=== PATIENT | female | born 1935 | race Caucasian/White ===

== ENCOUNTER 2019-04-05 23:51 | Inpatient (IN) | payer OTHER ==
[~2019-04-05] VITALS: Ht 162.6 cm; Wt 71.0 kg
[2019-04-06] MEDS ORDERED: ONDANSETRON 4 MG INJ IV STA (00:10)
[2019-04-06] MEDS ORDERED: SOD CHLORIDE 0.9% 1,000 ML IV STA (00:10)
[2019-04-06] MEDS ORDERED: HYDROmorphONE 1 MG/ML SYG IV STA (00:10)
[2019-04-06] MEDS ORDERED: SOD CHLORIDE 0.9% 100 ML ONE (01:44)
[2019-04-06] MEDS ORDERED: IOHEXOL 300MG/ML 150 ML BTL ONE (01:44)
--- NOTE | 2019-04-06 04:45 | ERD ---
ER Documentation Chief Complaint Chief Complaint bib self, cc: constipation x 4 days, HPI This 83-year-old female complains of left lower quadrant pain for the past 4 days. She also has some constipation. She has no fever no nausea or vomiting. It is in the left lower quadrant is dull and crampy at times without radiation no hematuria ROS All systems reviewed and are negative except as per history of present illness. Allergies Allergies: Coded Allergies: No Known Allergy (Unverified , 04/06/19) PMhx/Soc Medical and Surgical Hx: pt denies Medical Hx, pt denies Surgical Hx Hx Alcohol Use: No Hx Substance Use: No Hx Tobacco Use: No Smoking Status: Never smoker FmHx Family History: No coronary disease Physical Exam Vitals Vital Signs Date Temp Pulse Resp B/P (MAP) Pulse Ox O2 O2 Flow FiO2 Time Delivery Rate 04/06/19 82 20 155/60 100 Room Air 04:41 (91) 04/06/19 68 19 148/78 96 Room Air 02:00 (101) 04/06/19 98.5 79 19 152/81 100 Room Air 00:05 (104) 04/05/19 98.5 81 19 126/65 100 23:59 (85) Physical Exam Const: Well-developed, well-nourished Head: Atraumatic, normocephalic Eyes: Normal Conjunctiva, PERRLA, EOMI, normal sclera, no nystagmus ENT: Normal External Ears, Nose and Mouth, moist mucus membranes. Neck: Full range of motion. No meningismus, no lymphadenopathy. Resp: Clear to auscultation bilaterally, no wheezing, rhonchi, rales Cardio: Regular rate and rhythm, no murmurs, S1 S2 present Abd: Soft, moderate left lower quadrant tenderness, non distended. Normal bowel sounds, no guarding or rebound, no pulsitile abdominal masses or bruits Skin: No petechiae or rashes, no ecchymosis , no maculopapular rash Back: No midline or flank tenderness Ext: No cyanosis, or edema, FROM x 4, normal inspection, neurovascularly intact x 4 Neur: Awake and alert, STR 5/5 x 4, sensation intact x 4, no focal findings, cerebellum intact Psych: Normal Mood and Affect Result Diagram: 04/06/197 04/06/197 Results 24 hrs Laboratory Tests Test 04/06/19 00:37 White Blood Count 9.6 10^3/ul Red Blood Count 4.25 10^6/ul Hemoglobin 12.0 g/dl Hematocrit 36.7 % Mean Corpuscular Volume 86.4 fl Mean Corpuscular Hemoglobin 28.2 pg Mean Corpuscular Hemoglobin Concent 32.7 g/dl Red Cell Distribution Width 13.2 % Platelet Count 184 10^3/UL Mean Platelet Volume 9.5 fl Immature Granulocytes % 0.300 % Neutrophils % 79.3 % Lymphocytes % 10.3 % Monocytes % 8.8 % Eosinophils % 0.8 % Basophils % 0.5 % Nucleated Red Blood Cells % 0.0 /100WBC Immature Granulocytes # 0.030 10^3/ul Neutrophils # 7.6 10^3/ul Lymphocytes # 1.0 10^3/ul Monocytes # 0.8 10^3/ul Eosinophils # 0.1 10^3/ul Basophils # 0.1 10^3/ul Nucleated Red Blood Cells # 0.0 10^3/ul Sodium Level 137 mmol/L Potassium Level 4.1 mmol/L Chloride Level 102 mmol/L Carbon Dioxide Level 28 mmol/L Anion Gap 7 Blood Urea Nitrogen 14 mg/dl Creatinine 0.61 mg/dl Est Glomerular Filtrat Rate mL/min mL/min Glucose Level 121 mg/dl Calcium Level 9.0 mg/dl Total Bilirubin 0.8 mg/dl Direct Bilirubin 0.00 mg/dl Indirect Bilirubin 0.8 mg/dl Aspartate Amino Transf (AST/SGOT) 23 IU/L Alanine Aminotransferase (ALT/SGPT) 20 IU/L Alkaline Phosphatase 65 IU/L Total Protein 6.7 g/dl Albumin 3.8 g/dl Globulin 2.90 g/dl Albumin/Globulin Ratio 1.31 Lipase 78 U/L Current Medications Medications Dose Sig/Paulo Start Time Status Last (Trade) Ordered Route PRN Stop Time Admin Dose Reason Admin Sodium 1,000 ml @ Q1H STAT 04/06/19 DC 04/06/19 Chloride 1,000 mls/hr IV 00:10 00:43 04/06/19 01:09 0.5 mg ONCE STAT 04/06/19 DC 04/06/19 Hydromorphone IV 00:10 00:58 HCl 04/06/19 00:11 (Dilaudid) Ondansetron 4 mg ONCE STAT 04/06/19 DC 04/06/19 HCl (Zofran IV 00:10 00:58 Inj) 04/06/19 00:11 IV Flush 10 ml STK-MED 04/06/19 DC (NS 10 ml) ONCE .ROUTE 01:44 04/06/19 01:45 Sodium 100 ml @ ud STK-MED 04/06/19 DC Chloride ONCE .ROUTE 01:44 04/06/19 01:45 Iohexol 150 ml STK-MED 04/06/19 DC (Omnipaque ONCE .ROUTE 01:44 300mg/ ml) 04/06/19 01:45 Ertapenem 1 100 ml @ ONCE ONCE 04/06/19 gm/ Sodium 200 mls/hr IVPB 05:00 Chloride 04/06/19 05:29 Procedures/MDM Massive delay on CAT scan reading. I just spoke with the radiologist at 0 [phone] There is sigmoid diverticulitis with microperforation but no phlegmon or abscess. I gave the patient 1 g of Invanz IV will need to admit her to the hospital Departure Diagnosis: Primary Impression: Diverticulitis of colon with perforation Diverticulitis bleeding: without bleeding Qualified Codes: K57.20 - Diverticulitis of large intestine with perforation and abscess without bleeding Condition: Stable LENORA ROBBINS DO Apr 06, 2019 04:45
[2019-04-06] MEDS ORDERED: ERTAPENEM SODIUM 1 GM in SOD CHLORIDE 0.9% 100 ML IVPB ONE (05:00)
[2019-04-06] MEDS ORDERED: SOD CHLORIDE 0.9% 1,000 ML IV SCH (05:01)
[2019-04-06] MEDS: SOD CHLORIDE 0.9% 1,000 ML IV SCH ×2 (05:07→18:55)
[2019-04-06] MEDS ORDERED: morphine 2 MG INJ IV PRN (05:30)
[2019-04-06] MEDS ORDERED: BISACODYL (EC) 5 MG TAB PO PRN (05:30)
[2019-04-06] MEDS ORDERED: DOCUSATE SODIUM 100 MG CAP PO PRN (05:30)
[2019-04-06] MEDS ORDERED: NACL 0.9% 3 ML SYG IV SCH (05:30)
[2019-04-06] MEDS ORDERED: ONDANSETRON 4 MG INJ IV PRN ×2 (05:30)
[2019-04-06] MEDS ORDERED: ACETAMINOPHEN 325 MG TAB PO PRN ×2 (05:30)
--- NOTE | 2019-04-06 06:34 | HP ---
Date/Time of Note Date/Time of Note DATE: 04/06/19 TIME: 06:25 Assessment/Plan VTE Prophylaxis SCD applied (from Nsg): Yes Pharmacological prophylaxis: NA/contraindicated Pharm contraindication: low risk/ambulating Lines/Catheters IV Catheter Type (from Nrsg): Saline Lock Assessment/Plan Hospital Course This is a 83-year female being admitted to the [facility] floor for: #1 diverticulitis with microperforation: Given patient's advanced age she is a high risk. Will put the patient on meropenem 1 g every 8 hours. Zofran for nausea. IV fluid hydration with normal saline. We will keep the patient n.p.o. except meds. Pain management. General surgery consultation Dr. Salazar #2 hypertension: She does not recall her home medication. We will put PRN hydralazine #3 DVT GI prophylaxis: SCDs, no GI prophylaxis indicated Further treatment strategy will be implemented as per the clinical course. Result Diagram: 04/06/197 04/06/19 0037 Results 24hrs Laboratory Tests Test 04/06/19 00:37 White Blood Count 9.6 Red Blood Count 4.25 Hemoglobin 12.0 Hematocrit 36.7 L Mean Corpuscular Volume 86.4 Mean Corpuscular Hemoglobin 28.2 L Mean Corpuscular Hemoglobin Concent 32.7 Red Cell Distribution Width 13.2 Platelet Count 184 Mean Platelet Volume 9.5 Immature Granulocytes % 0.300 Neutrophils % 79.3 H Lymphocytes % 10.3 L Monocytes % 8.8 Eosinophils % 0.8 Basophils % 0.5 Nucleated Red Blood Cells % 0.0 Immature Granulocytes # 0.030 Neutrophils # 7.6 H Lymphocytes # 1.0 Monocytes # 0.8 Eosinophils # 0.1 Basophils # 0.1 Nucleated Red Blood Cells # 0.0 Sodium Level 137 Potassium Level 4.1 Chloride Level 102 Carbon Dioxide Level 28 Anion Gap 7 Blood Urea Nitrogen 14 Creatinine 0.61 Est Glomerular Filtrat Rate mL/min Glucose Level 121 Calcium Level 9.0 Total Bilirubin 0.8 Direct Bilirubin 0.00 Indirect Bilirubin 0.8 Aspartate Amino Transf (AST/SGOT) 23 Alanine Aminotransferase (ALT/SGPT) 20 Alkaline Phosphatase 65 Total Protein 6.7 Albumin 3.8 Globulin 2.90 Albumin/Globulin Ratio 1.31 Lipase 78 HPI/ROS Admit Date/Time Admit Date/Time Apr 06, 2019 at 05:02 Hx of Present Illness Chief complaint: Abdominal pain x1 week This is a very pleasant 83-year-old female who presented to the emergency department complaining of abdominal pain x1 week. Patient states that the pain is along her lower abdomen greater on the left side. She states that she has had a poor appetite. She denies any fevers. She does report nausea but no vomiting. She also reports constipation. Denies any hematemesis hematochezia or bloody vomitus. Allergies: NKDA Medications: Unknown ROS Const: As per HPI Eyes : No pain discharge or redness or change in visual acuity ENT: No pain, sore throat, congestion, congestion, dysphagia or discharge Respiratory: No shortness of breath, cough, sputum, wheezing, or pleuritic pain Cardiovascular: No chest pain, palpitation, PND, or edema GI : As per HPI Genitourinary: No dysuria, hematuria, flank pain , discharge or CVA tenderness Musculoskeletal: No joint pain, back pain, neck pain, restricted range of motion in neck or joints Skin: No rash, bruising or hives Neuro: No headache, dizziness, syncope, seizure, focal weakness Endocrine: No polyuria, polydipsia, temperature intolerance Psych: No hallucination, depression, anxiety or suicidal ideation PMH/Family/Social Past Medical History Hypertension Medications Current Medications Sodium Chloride 1,000 ml @ 80 mls/hr [id number] IV ; Start 04/06/19 at 05:01; Stop 04/06/19 at 17:30 Ondansetron HCl (Zofran Inj) 4 mg BRIDGE ORDER PRN IV NAUSEA/VOMITING; Start 04/06/19 at 05:30; Stop 04/07/19 at 05:29 Acetaminophen (Tylenol Tab) 650 mg ER BRIDGE PRN PO .MILD PAIN 1-3 OR TEMP; Start 04/06/19 at 05:30; Stop 04/07/19 at 05:29 Sodium Chloride 1,000 ml @ 80 mls/hr [id number] IV ; Start 04/06/19 at 05:07 IV Flush (NS 3 ml) 3 ml PER PROTOCOL IV ; Start 04/06/19 at 05:30 Ondansetron HCl (Zofran Inj) 4 mg Q6H PRN IV NAUSEA/VOMITING; Start 04/06/19 at 05:30 Acetaminophen (Tylenol Tab) 650 mg Q6H PRN PO .PAIN 1-3 OR TEMP; Start 04/06/19 at 05:30 Morphine Sulfate (morphine) 1 mg Q4H PRN IV .SEVERE PAIN 7-10; Start 04/06/19 at 05:30 Docusate Sodium (Colace) 100 mg Q12H PRN PO .CONSTIPATION; Start 04/06/19 at 05:30 Bisacodyl (Dulcolax) 5 mg DAILY PRN PO .CONSTIPATION; Start 04/06/19 at 05:30 Meropenem/Sodium Chloride 50 ml @ 100 mls/hr Q8 IVPB ; Start 04/07/19 at 06:00 Coded Allergies: Penicillins (Verified Allergy, Intermediate, 04/06/19) Rash Past Surgical History Left eye prosthesis, hysterectomy Family History Significant Family History: no pertinent family hx Social History Alcohol Use: none Smoking Status: Never smoker Drug Use: none Exam/Review of Systems Vital Signs Vitals Vital Signs Date Temp Pulse Resp B/P (MAP) Pulse Ox O2 O2 Flow FiO2 Time Delivery Rate 04/06/19 85 20 121/88 100 Room Air 05:46 (99) 04/06/19 98.5 00:05 Exam Exam General: Patient is a pleasant female who was walking around when I initially encountered her she does not appear to be in any acute distress. HEENT: Atraumatic, normocephalic. The pupils are equal, round and reactive. Extraocular motor are intact Neck: Supple with full range of motion. No rigidity or meningismus Chest: Nontender Lungs: Clear to auscultation bilaterally no crackles rales or wheezing Heart: Normal S1-S2, Regular rhythm and rate. No murmur, S3, or S4 Abdomen: Soft , mild tenderness palpation over the lower abdomen, nondistended , bowel sounds are present. No guarding no rebound tenderness , No masses or organomegaly. No costovertebral temporal angle mass Extremities: Normal to inspection, no edema no cyanosis Neurologic: Normal mental status, speech normal, cranial nerves II through XII are intact, motor and sensory are intact, normal gait Additional Comments PROCEDURE: CT Abdomen and Pelvis with contrast. CLINICAL INDICATION: Abdominal pain TECHNIQUE: CT scan of the abdomen and pelvis with contrast was performed on a multi-detector high-resolution CT scanner. The patient was scanned following intravenous administration of 100 ml Omnipaque-300 nonionic contrast. Coronal and sagittal reformatted images obtained from the axial source images. Images were reviewed on a high-resolution PACS workstation. Exam CTDI 7.32 mGy Exam DLP 421.47 mGy-cm DICOM images are available. One or more of the following dose reduction techniques were utilized: 1.) Automated exposure control 2.) Adjustment of the mA +/- kV according to patient's size 3.) Use of iterative reconstruction technique. COMPARISON: None. FINDINGS: CT abdomen: LOWER THORAX: There is a 2.0 cm fat attenuation nodule at the posterior base of the right lung. The lung bases are otherwise clear. LIVER AND GALLBLADDER: A 10 mm low density lesion at the dome of the liver is too small to definitively characterize, likely a cyst. Liver and gallbladder are otherwise unremarkable. SPLEEN: Normal. PANCREAS: Normal. ADRENAL GLANDS: Normal. KIDNEYS: The kidneys enhance symmetrically. No hydronephrosis or abnormal perinephric fluid. VASCULATURE: Mild atherosclerosis of the infrarenal aorta. The aorta is normal in caliber and there is no evidence for dissection. BOWEL AND MESENTERY: The stomach and small bowel are unremarkable. There is advanced diverticulosis of the lower descending and sigmoid colon. Pronounced wall thickening and stranding involving a 6 cm segment of the sigmoid bowel within the right lower pelvis. Several tiny blebs of gas within the region of inflammation appear extraluminal, likely indicating microperforation. No clearly defined abscess. Liquid stool is noted within the lower sigmoid colon. CT pelvis: The urinary bladder is unremarkable. Vascular structures in the pelvis enhance appropriately. The uterus has been removed. There is trace free fluid in the deep pelvis. Musculoskeletal: Marginal osteophytes, vacuum changes and multilevel disc degeneration in the lower thoracic and lumbar spine. Superficial soft tissues are grossly unremarkable. IMPRESSION: 1. Diverticulitis of the sigmoid colon, irregular wall thickening and stranding involving a 6 cm segment of the bowel in the right pelvis. Several tiny foci of gas within the inflamed tissues raise suspicion for microperforation. No clearly defined abscess. Surgical consultation is recommended. 2. Mild aortic atherosclerosis. 3. Fat attenuation 2.0 cm nodule in the posterior base of the right lower lobe, consistent with a pulmonary hamartoma or lipoma. Results called to Dr. Robbins at 4:40 am on 04/06/2019. RPTAT: [facility] Physician Krystin Date Time Electronically viewed and signed by Daniel Montoya Physician on 04/06/2019 04: 46 xB/ CC: LENORA ROBBINS DO [id number] KUSH KATHLEEN Apr 06, 2019 06:34
[2019-04-06] MEDS ORDERED: MEROPENEM 1 GM/50ML(PMX) 50 ML IVPB ONE (07:43)
[2019-04-06] MEDS: MEROPENEM 1 GM/50ML(PMX) 50 ML IVPB SCH (07:44)
[2019-04-06] MEDS ORDERED: ALBUTEROL 0.083% (NEB) 2.5 MG/3 ML AMP ONE (07:45)
[2019-04-06] MEDS: ALBUTEROL 0.083% (NEB) 2.5 MG/3 ML AMP HHN SCH ×4 (07:50→21:19)
[2019-04-06 08:40] VITALS: BP 115/55; PULSE 57; RESP 20
[2019-04-06 09:00] VITALS: Ht 162.6 cm; Wt 71.0 kg
--- NOTE | 2019-04-06 11:42 | CONS ---
Assessment/Plan Assessment/Plan Assessment/Plan (Daily) Acute diverticulitis with microperforation IV antibiotics, n.p.o., IV fluids Should respond to IV antibiotics Once pain and tenderness resolved, will advance diet. Consultation Date/Type/Reason Admit Date/Time Apr 06, 2019 at 05:02 Date/Time of Note DATE: 04/06/19 TIME: 11:40 Hx of Present Illness The patient is an 83-year-old female who had acute onset of lower abdominal pain for approximately 5 days. Her symptoms persisted and she presented to the ER. She denies fevers or chills. She denies nausea or emesis. She has had some associated constipation. She denies diarrhea. Patient had a prior episode in 2013. She had a colonoscopy in 2016. 14 point review of systems was performed. Pertinent negatives positive per HPI. Past Medical History Medical History: no pertinent history Medications Current Medications Ondansetron HCl (Zofran Inj) 4 mg BRIDGE ORDER PRN IV NAUSEA/VOMITING; Start 04/06/19 at 05:30; Stop 04/07/19 at 05:29 Acetaminophen (Tylenol Tab) 650 mg ER BRIDGE PRN PO .MILD PAIN 1-3 OR TEMP; Start 04/06/19 at 05:30; Stop 04/07/19 at 05:29 Sodium Chloride 1,000 ml @ 80 mls/hr [id number] IV ; Start 04/06/19 at 05:07 IV Flush (NS 3 ml) 3 ml PER PROTOCOL IV ; Start 04/06/19 at 05:30 Ondansetron HCl (Zofran Inj) 4 mg Q6H PRN IV NAUSEA/VOMITING; Start 04/06/19 at 05:30 Acetaminophen (Tylenol Tab) 650 mg Q6H PRN PO .PAIN 1-3 OR TEMP; Start 04/06/19 at 05:30 Morphine Sulfate (morphine) 1 mg Q4H PRN IV .SEVERE PAIN 7-10; Start 04/06/19 at 05:30 Docusate Sodium (Colace) 100 mg Q12H PRN PO .CONSTIPATION; Start 04/06/19 at 05:30 Bisacodyl (Dulcolax) 5 mg DAILY PRN PO .CONSTIPATION; Start 04/06/19 at 05:30 Meropenem/Sodium Chloride 50 ml @ 100 mls/hr Q8 IVPB Last administered on 04/06/19at 07:44; Admin Dose 100 MLS/HR; Start 04/07/19 at 06:00 Hydralazine HCl (Apresoline) 10 mg Q6H PRN PO ELEVATED SYSTOLIC BP; Start 04/06/19 at 06:30 Albuterol (Proventil 0.083% (Neb)) 2.5 mg Q4H RESP THERAPY HHN Last administered on 04/06/19at 07:50; Admin Dose 2.5 MG; Start 04/06/19 at 09:00 Allergies: Coded Allergies: Penicillins (Verified Allergy, Intermediate, 04/06/19) Rash Past Surgical History Past Surgical Hx: no surgical history Family History Significant Family History: no pertinent family hx Social History Alcohol Use: none Smoking Status: Never smoker Drug Use: none Exam/Review of Systems Exam Vitals Vital Signs Date Temp Pulse Resp B/P (MAP) Pulse Ox O2 O2 Flow FiO2 Time Delivery Rate 04/06/19 98.3 57 20 115/55 99 Nasal 2.0 08:40 (75) Cannula Intake and Output 04/05/19 04/05/19 04/06/19 1515:00 23:00 07:00 IntakeIntake Total 1100 ml BalanceBalance 1100 ml Constitutional: alert, oriented, well developed Head: normocephalic Eyes: nl conjunctiva ENMT: nl external ears & nose Neck: supple, non-tender Respiratory: clear to auscultation, normal air movement Cardiovascular: regular rate and rhythm Gastrointestinal: soft, other (Nondistended but significant left lower quadrant and suprapubic tenderness) Extremities: normal pulses Neurological: TRADE SPECIALIST II-XII intact, nl mental status Skin: nl turgor, rash or lesions Results Result Diagram: 04/06/197 04/06/19 0037 Results 24hrs Laboratory Tests Test 04/06/19 00:37 White Blood Count 9.6 Red Blood Count 4.25 Hemoglobin 12.0 Hematocrit 36.7 L Mean Corpuscular Volume 86.4 Mean Corpuscular Hemoglobin 28.2 L Mean Corpuscular Hemoglobin Concent 32.7 Red Cell Distribution Width 13.2 Platelet Count 184 Mean Platelet Volume 9.5 Immature Granulocytes % 0.300 Neutrophils % 79.3 H Lymphocytes % 10.3 L Monocytes % 8.8 Eosinophils % 0.8 Basophils % 0.5 Nucleated Red Blood Cells % 0.0 Immature Granulocytes # 0.030 Neutrophils # 7.6 H Lymphocytes # 1.0 Monocytes # 0.8 Eosinophils # 0.1 Basophils # 0.1 Nucleated Red Blood Cells # 0.0 Sodium Level 137 Potassium Level 4.1 Chloride Level 102 Carbon Dioxide Level 28 Anion Gap 7 Blood Urea Nitrogen 14 Creatinine 0.61 Est Glomerular Filtrat Rate mL/min Glucose Level 121 Calcium Level 9.0 Total Bilirubin 0.8 Direct Bilirubin 0.00 Indirect Bilirubin 0.8 Aspartate Amino Transf (AST/SGOT) 23 Alanine Aminotransferase (ALT/SGPT) 20 Alkaline Phosphatase 65 Total Protein 6.7 Albumin 3.8 Globulin 2.90 Albumin/Globulin Ratio 1.31 Lipase 78 Imaging Imaging Patient: OZ MESA : 1935 Age: 83 Sex: F MR #: [id number] DOS: 04/06/19 0010 Ordering MD: LENORA ROBBINS DO Location: E/R Room/Bed: PROCEDURE: CT Abdomen and Pelvis with contrast. CLINICAL INDICATION: Abdominal pain TECHNIQUE: CT scan of the abdomen and pelvis with contrast was performed on a multi-detector high-resolution CT scanner. The patient was scanned following intravenous administration of 100 ml Omnipaque-300 nonionic contrast. Coronal and sagittal reformatted images obtained from the axial source images. Images were reviewed on a high-resolution PACS workstation. Exam CTDI 7.32 mGy Exam DLP 421.47 mGy-cm DICOM images are available. One or more of the following dose reduction techniques were utilized: 1.) Automated exposure control 2.) Adjustment of the mA +/- kV according to patient's size 3.) Use of iterative reconstruction technique. COMPARISON: None. FINDINGS: CT abdomen: LOWER THORAX: There is a 2.0 cm fat attenuation nodule at the posterior base of the right lung. The lung bases are otherwise clear. LIVER AND GALLBLADDER: A 10 mm low density lesion at the dome of the liver is too small to definitively characterize, likely a cyst. Liver and gallbladder are otherwise unremarkable. SPLEEN: Normal. PANCREAS: Normal. ADRENAL GLANDS: Normal. KIDNEYS: The kidneys enhance symmetrically. No hydronephrosis or abnormal perinephric fluid. VASCULATURE: Mild atherosclerosis of the infrarenal aorta. The aorta is normal in caliber and there is no evidence for dissection. BOWEL AND MESENTERY: The stomach and small bowel are unremarkable. There is advanced diverticulosis of the lower descending and sigmoid colon. Pronounced wall thickening and stranding involving a 6 cm segment of the sigmoid bowel w ithin the right lower pelvis. Several tiny blebs of gas within the region of inflammation appear extraluminal, likely indicating microperforation. No clearly defined abscess. Liquid stool is noted within the lower sigmoid colon. CT pelvis: The urinary bladder is unremarkable. Vascular structures in the pelvis enhance appropriately. The uterus has been removed. There is trace free fluid in the deep pelvis. Musculoskeletal: Marginal osteophytes, vacuum changes and multilevel disc degeneration in the lower thoracic and lumbar spine. Superficial soft tissues are grossly unremarkable. IMPRESSION: 1. Diverticulitis of the sigmoid colon, irregular wall thickening and stranding involving a 6 cm segment of the bowel in the right pelvis. Several tiny foci of gas within the inflamed tissues raise suspicion for microperforation. No clearly defined abscess. Surgical consultation is recommended. 2. Mild aortic atherosclerosis. 3. Fat attenuation 2.0 cm nodule in the posterior base of the right lower lobe, consistent with a pulmonary hamartoma or lipoma. Results called to Dr. Robbins at 4:40 am on 04/06/2019. RPTAT: [facility] Medications Medication Current Medications Ondansetron HCl (Zofran Inj) 4 mg BRIDGE ORDER PRN IV NAUSEA/VOMITING; Start 04/06/19 at 05:30; Stop 04/07/19 at 05:29 Acetaminophen (Tylenol Tab) 650 mg ER BRIDGE PRN PO .MILD PAIN 1-3 OR TEMP; Start 04/06/19 at 05:30; Stop 04/07/19 at 05:29 Sodium Chloride 1,000 ml @ 80 mls/hr [id number] IV ; Start 04/06/19 at 05:07 IV Flush (NS 3 ml) 3 ml PER PROTOCOL IV ; Start 04/06/19 at 05:30 Ondansetron HCl (Zofran Inj) 4 mg Q6H PRN IV NAUSEA/VOMITING; Start 04/06/19 at 05:30 Acetaminophen (Tylenol Tab) 650 mg Q6H PRN PO .PAIN 1-3 OR TEMP; Start 04/06/19 at 05:30 Morphine Sulfate (morphine) 1 mg Q4H PRN IV .SEVERE PAIN 7-10; Start 04/06/19 at 05:30 Docusate Sodium (Colace) 100 mg Q12H PRN PO .CONSTIPATION; Start 04/06/19 at 05:30 Bisacodyl (Dulcolax) 5 mg DAILY PRN PO .CONSTIPATION; Start 04/06/19 at 05:30 Meropenem/Sodium Chloride 50 ml @ 100 mls/hr Q8 IVPB Last administered on 04/06/19at 07:44; Admin Dose 100 MLS/HR; Start 04/07/19 at 06:00 Hydralazine HCl (Apresoline) 10 mg Q6H PRN PO ELEVATED SYSTOLIC BP; Start 04/06/19 at 06:30 Albuterol (Proventil 0.083% (Neb)) 2.5 mg Q4H RESP THERAPY HHN Last administered on 04/06/19at 07:50; Admin Dose 2.5 MG; Start 04/06/19 at 09:00 GLORIA RODRIGUEZ MD Apr 06, 2019 11:42
--- NOTE | 2019-04-06 13:11 | PN ---
Date/Time of Note Date/Time of Note DATE: 04/06/19 TIME: 13:09 Assessment/Plan VTE Prophylaxis Risk score (from Ns)>0 risk: 3 SCD applied (from Ns): Yes Pharmacological prophylaxis: NA/contraindicated Pharm contraindication: low risk/ambulating Lines/Catheters IV [facility]ter [facility]from [facility] [place] Assessment/Plan Hospital Course SUBJECTIVE: Continues to have abdominal pain. Denies any nausea. OBJECTIVE: Physical Exam General: Adequately build 83 year-old female lying in bed in no apparent distress. HEENT: Normocephalic, atraumatic. Eyes: Anicteric sclerae, conjunctivae clear. ENT: Nasal septum midline, oral mucosa moist. Neck supple, no JVD noticed. Respiratory: Bilaterally clear breath sounds. No use of accessory muscles of respiration. No adventitious breath sounds. Cardiovascular: S1, S2 heard. Regular rate and rhythm. Abdomen: Soft and nondistended. Left lower quadrant tenderness. Bowel sounds positive in all 4 quadrants. Genitourinary: Deferred. Extremities: No cyanosis, no clubbing, no edema. Peripheral pulses palpable. Neurologic: Cranial nerves II through XII grossly intact. The patient is awake, alert, and oriented. Skin: Normal skin turgor. No skin rashes. Labs & Vitals per chart ASSESSMENT & PLAN 83-year-old female with past medical history of hypertension who presented to the emergency room complaining of abdominal pain with CT scan of the abdomen and pelvis showing diverticulitis of the sigmoid colon with suspicion for microperforation. The patient was admitted to inpatient setting for further treatment and evaluation. 1. Diverticulitis of the sigmoid colon with suspected microperforation. Being followed by general surgery. Continue meropenem. Continue n.p.o. Continue pain control. 2. Hypertension. Continue PRN antihypertensives. 3. Fluids, electrolytes, and nutrition. Continue IV fluids. 4. DVT prophylaxis. Bilateral SCDs. 5. Plan. Continue pain control. Continue n.p.o. Continue antimicrobials including coverage for anaerobes. Await clinical improvement before resuming oral intake. The patient was seen in collaboration with Dr. Gao. Result Diagram: 04/06/19 0037 04/06/19 0037 Results 24hrs Laboratory Tests Test 04/06/19 00:37 White Blood Count 9.6 Red Blood Count 4.25 Hemoglobin 12.0 Hematocrit 36.7 L Mean Corpuscular Volume 86.4 Mean Corpuscular Hemoglobin 28.2 L Mean Corpuscular Hemoglobin Concent 32.7 Red Cell Distribution Width 13.2 Platelet Count 184 Mean Platelet Volume 9.5 Immature Granulocytes % 0.300 Neutrophils % 79.3 H Lymphocytes % 10.3 L Monocytes % 8.8 Eosinophils % 0.8 Basophils % 0.5 Nucleated Red Blood Cells % 0.0 Immature Granulocytes # 0.030 Neutrophils # 7.6 H Lymphocytes # 1.0 Monocytes # 0.8 Eosinophils # 0.1 Basophils # 0.1 Nucleated Red Blood Cells # 0.0 Sodium Level 137 Potassium Level 4.1 Chloride Level 102 Carbon Dioxide Level 28 Anion Gap 7 Blood Urea Nitrogen 14 Creatinine 0.61 Est Glomerular Filtrat Rate mL/min Glucose Level 121 Calcium Level 9.0 Total Bilirubin 0.8 Direct Bilirubin 0.00 Indirect Bilirubin 0.8 Aspartate Amino Transf (AST/SGOT) 23 Alanine Aminotransferase (ALT/SGPT) 20 Alkaline Phosphatase 65 Total Protein 6.7 Albumin 3.8 Globulin 2.90 Albumin/Globulin Ratio 1.31 Lipase 78 Exam/Review of Systems Exam Vitals Vital Signs Date Temp Pulse Resp B/P (MAP) Pulse Ox O2 O2 Flow FiO2 Time Delivery Rate 04/06/19 98.3 57 20 115/55 99 Nasal 2.0 08:40 (75) Cannula Intake and Output 04/05/19 04/05/19 04/06/19 1515:00 23:00 07:00 IntakeIntake Total 1100 ml BalanceBalance 1100 ml Results Results 24hrs Laboratory Tests Test 04/06/19 00:37 White Blood Count 9.6 Red Blood Count 4.25 Hemoglobin 12.0 Hematocrit 36.7 L Mean Corpuscular Volume 86.4 Mean Corpuscular Hemoglobin 28.2 L Mean Corpuscular Hemoglobin Concent 32.7 Red Cell Distribution Width 13.2 Platelet Count 184 Mean Platelet Volume 9.5 Immature Granulocytes % 0.300 Neutrophils % 79.3 H Lymphocytes % 10.3 L Monocytes % 8.8 Eosinophils % 0.8 Basophils % 0.5 Nucleated Red Blood Cells % 0.0 Immature Granulocytes # 0.030 Neutrophils # 7.6 H Lymphocytes # 1.0 Monocytes # 0.8 Eosinophils # 0.1 Basophils # 0.1 Nucleated Red Blood Cells # 0.0 Sodium Level 137 Potassium Level 4.1 Chloride Level 102 Carbon Dioxide Level 28 Anion Gap 7 Blood Urea Nitrogen 14 Creatinine 0.61 Est Glomerular Filtrat Rate mL/min Glucose Level 121 Calcium Level 9.0 Total Bilirubin 0.8 Direct Bilirubin 0.00 Indirect Bilirubin 0.8 Aspartate Amino Transf (AST/SGOT) 23 Alanine Aminotransferase (ALT/SGPT) 20 Alkaline Phosphatase 65 Total Protein 6.7 Albumin 3.8 Globulin 2.90 Albumin/Globulin Ratio 1.31 Lipase 78 Medications Medication Current Medications Ondansetron HCl (Zofran Inj) 4 mg BRIDGE ORDER PRN IV NAUSEA/VOMITING; Start 04/06/19 at 05:30; Stop 04/07/19 at 05:29 Acetaminophen (Tylenol Tab) 650 mg ER BRIDGE PRN PO .MILD PAIN 1-3 OR TEMP; Start 04/06/19 at 05:30; Stop 04/07/19 at 05:29 Sodium Chloride 1,000 ml @ 80 mls/hr [id number] IV ; Start 04/06/19 at 05:07 IV Flush (NS 3 ml) 3 ml PER PROTOCOL IV ; Start 04/06/19 at 05:30 Ondansetron HCl (Zofran Inj) 4 mg Q6H PRN IV NAUSEA/VOMITING; Start 04/06/19 at 05:30 Acetaminophen (Tylenol Tab) 650 mg Q6H PRN PO .PAIN 1-3 OR TEMP; Start 04/06/19 at 05:30 Morphine Sulfate (morphine) 1 mg Q4H PRN IV .SEVERE PAIN 7-10; Start 04/06/19 at 05:30 Docusate Sodium (Colace) 100 mg Q12H PRN PO .CONSTIPATION; Start 04/06/19 at 05:30 Bisacodyl (Dulcolax) 5 mg DAILY PRN PO .CONSTIPATION; Start 04/06/19 at 05:30 Meropenem/Sodium Chloride 50 ml @ 100 mls/hr Q8 IVPB Last administered on 04/06/19at 07:44; Admin Dose 100 MLS/HR; Start 04/07/19 at 06:00 Hydralazine HCl (Apresoline) 10 mg Q6H PRN PO ELEVATED SYSTOLIC BP; Start 04/06/19 at 06:30 Albuterol (Proventil 0.083% (Neb)) 2.5 mg Q4H RESP THERAPY HHN Last administered on 04/06/19at 07:50; Admin Dose 2.5 MG; Start 04/06/19 at 09:00 JANNET ALMEIDA NP Apr 06, 2019 13:11
[2019-04-06 14:30] VITALS: BP 128/65; PULSE 58; RESP 18
[2019-04-06 20:38] VITALS: BP 113/56; PULSE 61; RESP 20
[2019-04-07] MEDS: ALBUTEROL 0.083% (NEB) 2.5 MG/3 ML AMP HHN SCH ×6 (01:52→21:10)
[2019-04-07] MEDS ORDERED: GLUC100015 PO (02:06)
[2019-04-07] MEDS ORDERED: IBUP200C11 PO (02:06)
[2019-04-07] MEDS ORDERED: TETR15DR63 BOTH EYES (02:06)
[2019-04-07] MEDS ORDERED: AMLO-147 PO (02:06)
[2019-04-07] MEDS ORDERED: LOSA100T15 PO (02:06)
[2019-04-07 02:19] VITALS: BP 103/52; PULSE 58; RESP 18
[2019-04-07] MEDS: SOD CHLORIDE 0.9% 1,000 ML IV SCH ×3 (06:07→20:09)
[2019-04-07] MEDS ORDERED: AL HYDROX/MG HYDROX/SIMETH 30 ML CUP PO PRN (06:30)
[2019-04-07 08:00] VITALS: BP 130/61; PULSE 60; RESP 18
[2019-04-07 14:00] VITALS: BP 126/59; PULSE 71; RESP 18
[2019-04-07] MEDS: MEROPENEM 1 GM/50ML(PMX) 50 ML IVPB SCH ×2 (14:27→22:44)
--- NOTE | 2019-04-07 14:31 | PN ---
Date/Time of Note Date/Time of Note DATE: 04/07/19 TIME: 14:28 Assessment/Plan VTE Prophylaxis Risk score (from Ns)>0 risk: 4 SCD applied (from Ns): Yes Pharmacological prophylaxis: NA/contraindicated Pharm contraindication: other Lines/Catheters [facility]from [facility] Peripheral IV Assessment/Plan Hospital Course 1. Diverticulitis of the sigmoid colon with suspected microperforation. surgeon following continue abx keep NPO analgesics prn 2. Hypertension. Continue PRN antihypertensives. 3. Obesity Weight reduction was advised Disposition and plan. Still with abdominal pain with less today. Continue IV fluids. Surgeon following. Advance diet per surgeon. Continue to monitor in- house. Discussed POC with Dr. Munguia Result Diagram: 04/07/19 0542 04/07/19 0542 Results 24hrs Laboratory Tests Test 04/07/19 05:42 White Blood Count 5.8 # Red Blood Count 3.49 L Hemoglobin 9.7 L Hematocrit 32.2 L Mean Corpuscular Volume 92.3 Mean Corpuscular Hemoglobin 27.8 L Mean Corpuscular Hemoglobin Concent 30.1 L Red Cell Distribution Width 13.3 Platelet Count 135 #L Mean Platelet Volume 9.9 Immature Granulocytes % 0.300 Neutrophils % 67.2 Lymphocytes % 23.9 Monocytes % 6.4 Eosinophils % 1.7 Basophils % 0.5 Nucleated Red Blood Cells % 0.0 Immature Granulocytes # 0.020 Neutrophils # 3.9 Lymphocytes # 1.4 Monocytes # 0.4 Eosinophils # 0.1 Basophils # 0.0 Nucleated Red Blood Cells # 0.0 Sodium Level 139 Potassium Level 4.3 Chloride Level 109 Carbon Dioxide Level 26 Anion Gap 4 L Blood Urea Nitrogen 10 Creatinine 0.63 Est Glomerular Filtrat Rate mL/min Glucose Level 81 # Hemoglobin A1c 5.2 Calcium Level 7.8 L Phosphorus Level 2.9 Magnesium Level 2.3 Total Bilirubin 0.4 Direct Bilirubin 0.00 Indirect Bilirubin 0.4 Aspartate Amino Transf (AST/SGOT) 21 Alanine Aminotransferase (ALT/SGPT) 17 Alkaline Phosphatase 46 Total Protein 5.2 #L Albumin 2.7 #L Globulin 2.50 Albumin/Globulin Ratio 1.08 Thyroid Stimulating Hormone (TSH) 1.110 Subjective 24 Hr Interval Summary Free Text/Dictation Reports less abdominal pain today. Exam/Review of Systems Exam Vitals Vital Signs Date Temp Pulse Resp B/P (MAP) Pulse Ox O2 O2 Flow FiO2 Time Delivery Rate 04/07/19 68 20 94 21 13:50 04/07/19 98.0 130/61 Room Air 08:00 (84) 04/06/19 2.0 08:40 Intake and Output 04/06/19 04/06/19 04/07/19 1515:00 23:00 07:00 IntakeIntake Total 50 ml 1000 ml 700 ml BalanceBalance 50 ml 1000 ml 700 ml Constitutional: alert, oriented, obese Head: normocephalic Eyes: nl conjunctiva Neck: supple, non-tender Respiratory: clear to auscultation Cardiovascular: other (regular rate ) Gastrointestinal: soft, tender Neurological: [employer] CONSULTANT II-XII intact, nl mental status, nl speech Skin: nl turgor Results Results 24hrs Laboratory Tests Test 04/07/19 05:42 White Blood Count 5.8 # Red Blood Count 3.49 L Hemoglobin 9.7 L Hematocrit 32.2 L Mean Corpuscular Volume 92.3 Mean Corpuscular Hemoglobin 27.8 L Mean Corpuscular Hemoglobin Concent 30.1 L Red Cell Distribution Width 13.3 Platelet Count 135 #L Mean Platelet Volume 9.9 Immature Granulocytes % 0.300 Neutrophils % 67.2 Lymphocytes % 23.9 Monocytes % 6.4 Eosinophils % 1.7 Basophils % 0.5 Nucleated Red Blood Cells % 0.0 Immature Granulocytes # 0.020 Neutrophils # 3.9 Lymphocytes # 1.4 Monocytes # 0.4 Eosinophils # 0.1 Basophils # 0.0 Nucleated Red Blood Cells # 0.0 Sodium Level 139 Potassium Level 4.3 Chloride Level 109 Carbon Dioxide Level 26 Anion Gap 4 L Blood Urea Nitrogen 10 Creatinine 0.63 Est Glomerular Filtrat Rate mL/min Glucose Level 81 # Hemoglobin A1c 5.2 Calcium Level 7.8 L Phosphorus Level 2.9 Magnesium Level 2.3 Total Bilirubin 0.4 Direct Bilirubin 0.00 Indirect Bilirubin 0.4 Aspartate Amino Transf (AST/SGOT) 21 Alanine Aminotransferase (ALT/SGPT) 17 Alkaline Phosphatase 46 Total Protein 5.2 #L Albumin 2.7 #L Globulin 2.50 Albumin/Globulin Ratio 1.08 Thyroid Stimulating Hormone (TSH) 1.110 Medications Medication Current Medications Sodium Chloride 1,000 ml @ 80 mls/hr [id number] IV Last administered on 04/07/19at 09:35; Admin Dose 80 MLS/HR; Start 04/06/19 at 05:07 IV Flush (NS 3 ml) 3 ml PER PROTOCOL IV ; Start 04/06/19 at 05:30 Ondansetron HCl (Zofran Inj) 4 mg Q6H PRN IV NAUSEA/VOMITING; Start 04/06/19 at 05:30 Acetaminophen (Tylenol Tab) 650 mg Q6H PRN PO .PAIN 1-3 OR TEMP; Start 04/06/19 at 05:30 Morphine Sulfate (morphine) 1 mg Q4H PRN IV .SEVERE PAIN 7-10; Start 04/06/19 at 05:30 Docusate Sodium (Colace) 100 mg Q12H PRN PO .CONSTIPATION; Start 04/06/19 at 05:30 Bisacodyl (Dulcolax) 5 mg DAILY PRN PO .CONSTIPATION; Start 04/06/19 at 05:30 Meropenem/Sodium Chloride 50 ml @ 100 mls/hr Q8 IVPB Last administered on 04/07/19at 14:27; Admin Dose 100 MLS/HR; Start 04/07/19 at 06:00 Hydralazine HCl (Apresoline) 10 mg Q6H PRN PO ELEVATED SYSTOLIC BP; Start 04/06/19 at 06:30 Albuterol (Proventil 0.083% (Neb)) 2.5 mg Q4H RESP THERAPY HHN Last administered on 04/07/19at 13:50; Admin Dose 2.5 MG; Start 04/06/19 at 09:00 Miscellaneous Information Patients own medicat... BID@10,16 XX ; Start 04/07/19 at 10:00 Al Hydrox/Mg Hydrox/Simethicone (Mag-Al Plus) 30 ml Q6H PRN PO GASTROINTESTINAL UPSET Last administered on 04/07/19at 06:50; Admin Dose 30 ML; Start 04/07/19 at 06:30 Pantoprazole (Protonix Tab) 40 mg DAILY@06 PO ; Start 04/08/19 at 06:00 LEYDI SANTANA NP Apr 07, 2019 14:31
--- NOTE | 2019-04-07 17:28 | PN ---
Date/Time of Note Date/Time of Note DATE: 04/07/19 TIME: 17:27 Assessment/Plan Lines/Catheters IV Catheter Type (from [facility]rsg): Peripheral IV Assessment/Plan Assessment/Plan Hospital day #1 for acute diverticulitis Improving pain and tenderness. Afebrile overnight. Clear liquid diet in a.m. Subjective 24 Hr Interval Summary Constitutional: other (Feels better. Less pain.) Feeding: NPO Pain Control: well controlled Exam/Review of Systems Vital Signs Vitals Vital Signs Date Temp Pulse Resp B/P (MAP) Pulse Ox O2 O2 Flow FiO2 Time Delivery Rate 04/07/19 98.1 71 18 126/59 93 Room Air 14:00 (81) 04/07/19 21 13:50 04/06/19 2.0 08:40 Intake and Output 04/06/19 04/06/19 04/07/19 1414:59 22:59 06:59 IntakeIntake Total 50 ml 1000 ml 700 ml BalanceBalance 50 ml 1000 ml 700 ml Exam Constitutional: alert, oriented, well developed Cardiovascular: regular rate and rhythm Gastrointestinal: other (Decreased distention and decreased left lower quadrant tenderness) Results Result Diagram: 04/07/19 0542 04/07/19 0542 GLORIA RODRIGUEZ MD Apr 07, 2019 17:28
[2019-04-07 20:00] VITALS: BP 148/69; PULSE 64; RESP 19
[2019-04-08] MEDS: ALBUTEROL 0.083% (NEB) 2.5 MG/3 ML AMP HHN SCH ×3 (01:04→09:40)
[2019-04-08 02:00] VITALS: BP 134/64; PULSE 60; RESP 18
[2019-04-08] MEDS ORDERED: PANTOPRAZOLE (EC) 40 MG TAB PO SCH (06:00)
[2019-04-08] MEDS: MEROPENEM 1 GM/50ML(PMX) 50 ML IVPB SCH ×2 (06:38→14:28)
[2019-04-08 07:42] VITALS: BP 143/61; PULSE 67; RESP 16
[2019-04-08] MEDS ORDERED: LEVO500T10 PO (10:51)
[2019-04-08] MEDS ORDERED: METR500T PO (10:51)
[2019-04-08] MEDS ORDERED: HYDR-4011 PO (10:52)
--- NOTE | 2019-04-08 10:53 | PDOCDIS ---
Discharge Instructions CONDITION [id number] Patient Condition: [id number] Good HOME CARE INSTRUCTIONS: [id number] Diet Instructions: [id number] FOLLOW UP/APPOINTMENTS Follow-up Plan pcp 1 week CATHLEEN SALES MD Apr 08, 2019 10:53
--- NOTE | 2019-04-08 12:16 | DS ---
DATE OF ADMISSION: 04/06/2019 DATE OF DISCHARGE: 04/08/2019 DISCHARGE DIAGNOSES: 1. An 83-year-old female with acute sigmoid diverticulitis. 2. Hypertension. HOSPITAL COURSE: An 83-year-old female with hypertension, presented to emergency room with complaint of lower abdominal pain x 1 week. Patient has had poor appetite. Initial evaluation included a CAT scan of the abdomen and pelvis. This study showed diverticulitis of the sigmoid colon with irregula r wall thickening and stranding involving a 6 cm segment of the bowel in the right pelvis. There wer e several tiny foci of gas within the inflamed tissues suspicious for microperforation. The patient was seen in consultation by Dr. Salazar. IV antibiotics were recommended. There was no need for surg ical intervention. Her pain subsided significantly. She was tolerating a clear liquid diet. I adva nced her diet to soft. The white blood cell count was down to 3.8. Her basic metabolic panel and li allan function tests were all within normal limits. At this point, the patient is in a stable condition for discharge. MEDICATIONS ON DISCHARGE: 1. Levaquin 500 mg p.o. daily x 10 days. 2. Flagyl 500 mg p.o. q.8 h x 10 days. 3. [place] 1 tablet every 4 hours as needed, #20. 4. Amlodipine 10 mg p.o. daily. 5. Losartan 100 mg p.o. daily. Follow up with PCP in 1 week. Dictated By: CATHLEEN MENDOZA/ALICE Conf#: [id number] DID#: [id number] CC: GLORIA SALAZAR MD;*EndCC*
[2019-04-08 14:18] VITALS: BP 144/65; PULSE 63; RESP 16
== END 2019-04-08 16:25 | disposition home or self-care (01) | DRG 392 ==
LOC: E/R 23:51 → PP2 04-06 05:02
PROVIDERS: ADMIT Family Medicine; ATTEND Family Medicine
DX: K57.20 Diverticulitis of large intestine with perforation and abscess without bleeding (principal); I10 Essential (primary) hypertension; E66.9 Obesity, unspecified; Z68.26 Body mass index [BMI] 26.0-26.9, adult; K59.00 Constipation, unspecified
CPT/HCPCS: 36415; 70450; 73090; 74177; 80053; 83036; 83690; 83735; 84100; 84443; 85025; 94640; 96361; 96374; 96375; J1170; J1335; J2185; J2270; J2405; J7030; Q9967